=== PATIENT | male | born 1945 | race Caucasian/White ===

== ENCOUNTER 2017-02-02 03:23 | Inpatient (IN) ==
[2017-02-02] MEDS ORDERED: NITROGLYCERIN 2% OINT 1 INCH/GM PACK TOP STA (04:17)
[2017-02-02] MEDS ORDERED: MORPHINE 2 MG/1 ML SYRINGE IV STA (04:17)
[2017-02-02] MEDS ORDERED: ONDANSETRON 4 MG/2 ML VIAL IV STA (04:17)
[2017-02-02] MEDS ORDERED: methylPREDNISolone SOD SUC 125 MG/2 ML VIAL IV STA ×2 (04:17→07:20)
[2017-02-02] MEDS ORDERED: FUROSEMIDE 100 MG/10 ML VIAL IV STA (04:17)
[2017-02-02 04:24] LABS: Basophils # 0.1 10*3/uL (0.0-0.2); Basophils % 0.8 % (0.0-0.8); Eosinophils # 0.2 10*3/uL (0.0-0.87); Eosinophils % 2.6 % (0.00-10.9); Hematocrit 38.7 VOL% (42.0-52.0); Hemoglobin 13.3 GM/DL (14.0-18.0); Immature Granulocytes % 0.4 %; Immature Granulocytes Absolute 0.04 #; Lymphocytes % 21.7 % (21.2-54.2); Mean Corpuscular HGB Conc 34.4 GM/DL (32-36); Mean Corpuscular Hemoglobin 32 PG (27-34); Mean Corpuscular Volume 91.9 FL (87-102); Mean Platelet Volume 10.7 FL (9.6-12.0); Monocytes % 10.5 % (1.7-12.7); Neutrophils # 5.8 10*3/uL (1.4-7.4); Platelet Count 277 T/CUMM (130-400); Red Blood Count 4.21 MC/CUMM (3.8-5.5); Red Cell Distribution Width 12.2 % (9.3-17.3); White Blood Count 9.1 T/CUMM (4-12)
[2017-02-02] MEDS ORDERED: FUROSEMIDE 40 MG/4 ML VIAL ONE (04:24)
[2017-02-02] MEDS ORDERED: NITROGLYCERIN 2% OINT 1 INCH/GM PACK TOP ONE (04:24)
[2017-02-02] MEDS ORDERED: ONDANSETRON 4 MG/2 ML VIAL ONE (04:24)
[2017-02-02] MEDS ORDERED: FUROSEMIDE 20 MG/2 ML VIAL ONE (04:25)
[2017-02-02] MEDS ORDERED: methylPREDNISolone SOD SUC 125 MG/2 ML VIAL ONE (04:25)
[2017-02-02] MEDS ORDERED: MORPHINE 2 MG/1 ML SYRINGE ONE (04:25)
[2017-02-02] MEDS ORDERED: ALBUTEROL 2.5 MG/3 ML NEB RESP TX SCH (04:30)
[2017-02-02 04:35] LABS: PT Patient Result 10.1 SECS
[2017-02-02 04:42] LABS: ABG Base Excess -0.6 MMOL/L (-2.5-2.5); ABG HCO3 23.9 MMOL/L (20-26); ABG Oxygen Saturation 96.2 % (95-100); ABG PH 7.405 (7.35-7.45); ABG PO2 83.7 MM HG (80-95); ABG TCO2 20.7 MMOL/L (23-27); Allen Test Positive
[2017-02-02 04:52] LABS: Alanine Aminotransferase 19 U/L (16-61); Albumin 3.6 G/DL (3.4-5.0); Alkaline Phosphatase 76 U/L (45-117); Aspartate Amino Transferase 13 U/L (0-37); Blood Urea Nitrogen 15 MG/DL (7-18); Calcium 8.8 MG/DL (8.5-10.1); Glucose 127 MG/DL (74-106); Magnesium 1.9 MG/DL (1.8-2.4); Osmolality,Calculated 279.5 MOS/KG (273-304); Potassium 4.2 MMOL/L (3.5-5.1); Sodium 139 MMOL/L (136-145); Troponin I Only < 0.015 NG/ML (0.00-0.045)
[2017-02-02] MEDS ORDERED: cefTRIAXone 1,000 MG in SODIUM CHLORIDE 0.9% 100 ML IV STA (05:53)
[2017-02-02] MEDS ORDERED: cefTRIAXone 1,000 MG VIAL ONE (05:59)
[2017-02-02] MEDS ORDERED: ACETAMINOPHEN 325 MG TABLET PO PRN (09:12)
[2017-02-02] MEDS ORDERED: ONDANSETRON 4 MG/2 ML VIAL IV PRN (09:12)
[2017-02-02] MEDS: PANTOPRAZOLE 40 MG TABLET PO SCH (10:10)
[2017-02-02] MEDS: methylPREDNISolone SOD SUC 40 MG/1 ML VIAL IV SCH ×3 (10:10→21:38)
[2017-02-02] MEDS: AZITHROMYCIN INJ 500 MG in SODIUM CHLORIDE 0.9% 250 ML IV SCH (11:07)
[2017-02-02] MEDS: ALBUTEROL/IPRATROPIUM 3 ML NEB RESP TX SCH ×3 (11:23→19:31)
[2017-02-02 12:50] LABS: Apearance,Urine CLEAR (Clear); Bilirubin,Urine Negative (Negative); Blood, Urine Negative (Negative); Glucose,Urine (UA) Negative (Negative); Hyaline Casts,Urine 4 /LPF (0-3); Ketones,Urine Negative (Negative); Mucus,Urine Occasional /LPF (Occasional); Nitrite,Urine Negative (Negative); Protein,Urine Negative; RBC,Urine <1 /HPF (0-4); Urine Color Yellow (Yellow); Urine Specific Gravity 1.029 (1.001-1.035); Urine Urobilinogen < 2.0 EU/DL (0.2-1.0); WBC,Urine <1 /HPF (0-6)
[2017-02-02] MEDS: ATORVASTATIN 40 MG TABLET PO SCH (21:39)
[2017-02-03] MEDS: ALBUTEROL/IPRATROPIUM 3 ML NEB RESP TX SCH ×7 (00:30→23:35)
[2017-02-03] MEDS: methylPREDNISolone SOD SUC 40 MG/1 ML VIAL IV SCH ×4 (04:16→23:37)
[2017-02-03 07:59] LABS: Basophils % 0.1 % (0.0-0.8); Hematocrit 34.5 VOL% (42.0-52.0); Immature Granulocytes % 1.4 %; Immature Granulocytes Absolute 0.23 #; Lymphocytes # 1.9 10*3/uL (1.4-4.0); Lymphocytes % 11.2 % (21.2-54.2); Mean Corpuscular HGB Conc 34.8 GM/DL (32-36); Mean Corpuscular Hemoglobin 32 PG (27-34); Mean Corpuscular Volume 91.5 FL (87-102); Mean Platelet Volume 10.7 FL (9.6-12.0); Monocytes # 0.8 10*3/uL (0.11-0.8); Monocytes % 4.5 % (1.7-12.7); Neutrophils # 13.9 10*3/uL (1.4-7.4); Neutrophils % 82.8 % (38.7-73.9); Platelet Count 277 T/CUMM (130-400); Red Blood Count 3.77 MC/CUMM (3.8-5.5); Red Cell Distribution Width 12.3 % (9.3-17.3); White Blood Count 16.8 T/CUMM (4-12)
[2017-02-03 08:28] LABS: Band Neutrophils 2 % (0-10); Giant Platelets Few; Hypochromasia 1+; Lymphocytes 14 % (20-55); Microcytosis Slight; Ovalocytes Slight; Platelet Estimate Adequate; Segmented Neutrophils 82 % (50-85); Total Cells Counted 100
[2017-02-03 08:50] LABS: Calcium 8.6 MG/DL (8.5-10.1); Osmolality,Calculated 289.3 MOS/KG (273-304); Risk Ratio 3.11; Thyroid Stimulating Hormone 0.372 uIU/ml (0.358-3.74); VLDL CHOLESTEROL 14.8 MG/DL
[2017-02-03] MEDS ORDERED: cefTRIAXone 1,000 MG in SODIUM CHLORIDE 0.9% 100 ML IV SCH (09:00)
[2017-02-03] MEDS: PANTOPRAZOLE 40 MG TABLET PO SCH (09:56)
[2017-02-03] MEDS: LOSARTAN 50 MG TABLET PO SCH (09:56)
[2017-02-03] MEDS: AZITHROMYCIN INJ 500 MG in SODIUM CHLORIDE 0.9% 250 ML IV SCH ×2 (11:00→13:08)
[2017-02-03] MEDS: ATORVASTATIN 40 MG TABLET PO SCH (20:57)
[2017-02-04] MEDS: ALBUTEROL/IPRATROPIUM 3 ML NEB RESP TX SCH ×3 (02:26→11:45)
[2017-02-04] MEDS: methylPREDNISolone SOD SUC 40 MG/1 ML VIAL IV SCH (03:55)
[2017-02-04 07:17] VITALS: BP 150/89
[2017-02-04 07:46] LABS: Basophils % 0.2 % (0.0-0.8); Hematocrit 37.3 VOL% (42.0-52.0); Hemoglobin 12.7 GM/DL (14.0-18.0); Immature Granulocytes Absolute 0.81 #; Lymphocytes # 2.8 10*3/uL (1.4-4.0); Lymphocytes % 10.4 % (21.2-54.2); Mean Corpuscular Hemoglobin 32 PG (27-34); Mean Corpuscular Volume 94.2 FL (87-102); Monocytes # 1.1 10*3/uL (0.11-0.8); Monocytes % 4.2 % (1.7-12.7); Neutrophils # 21.8 10*3/uL (1.4-7.4); Neutrophils % 82.2 % (38.7-73.9); Platelet Count 363 T/CUMM (130-400); Red Blood Count 3.96 MC/CUMM (3.8-5.5); Red Cell Distribution Width 12.4 % (9.3-17.3); White Blood Count 26.6 T/CUMM (4-12)
[2017-02-04 08:08] LABS: Calcium 8.8 MG/DL (8.5-10.1); Osmolality,Calculated 289.3 MOS/KG (273-304); Potassium 4.2 MMOL/L (3.5-5.1)
[2017-02-04 08:09] LABS: Hypochromasia 1+; Lymphocytes 11 % (20-55); Segmented Neutrophils 87 % (50-85); Total Cells Counted 100
[2017-02-04 08:10] LABS: Platelet Estimate Normal
[2017-02-04] MEDS: LOSARTAN 50 MG TABLET PO SCH (08:31)
[2017-02-04] MEDS: PANTOPRAZOLE 40 MG TABLET PO SCH (08:31)
== END 2017-02-04 11:39 | disposition home or self-care (01) | DRG 190 ==
LOC: N.ED 03:23 → N.EDINP 07:30 → N.5E 09:12
PROVIDERS: ADMIT Internal Medicine; ATTEND Internal Medicine